=== PATIENT | male | born 1945 | race Caucasian/White ===

== ENCOUNTER 2024-11-01 02:09 | Emergency (ER) | payer MEDICARE, SELFPAY ==
--- NOTE | ~2024-11-01 | CT_ITS ---
CLINICAL HISTORY: Generalized malaise, coffee-ground emesis CTA abdomen and pelvis with contrast. Comparison: None. Findings: Mild emphysematous changes are seen in the lung bases. Couple simple left hepatic cysts are seen measuring up to 1.2 cm. Additional subcentimeter hepatic hypodensities are too small to characterize. Subcentimeter hypodensity in the left kidney is also too small to characterize. The gallbladder, pancreas, spleen, bilateral adrenal glands, and right kidney appear within normal limits. 3.3 cm coarse calcification is seen in the posterior urinary bladder. There is no adenopathy. No active gastrointestinal hemorrhage is identified. There is no evidence of bowel obstruction. The appendix appears normal. There is no pneumoperitoneum or ascites. 0.9 cm focal sclerosis is seen in the right inferior pubic ramus, likely representing a bone island. No aggressive lytic or blastic lesion is seen. Severe degenerative changes are seen at L5/S1. No acute osseous abnormality is identified. Impression: 1. No evidence of active gastrointestinal hemorrhage. 2. 3.3 cm coarse calcification in the posterior urinary bladder. 3. Other findings as described. This document has been electronically signed by: Yvonne Quinones on 11/01/2024 06:16:54
[2024-11-01 02:15] VITALS: BP 130/64; BP 147/65; PULSE 68; PULSE 77; RESP 15; TEMP 36.4; O2SAT 97; O2SAT 99; BMI 20.3
--- NOTE | 2024-11-01 02:39 | ECG_ITS ---
Test Reason : NAUSEA/VOMITING Blood Pressure : */* mmHG Vent. Rate : 64 BPM Atrial Rate : 64 BPM P-R Int : 146 ms QRS Dur : 82 ms QT Int : 426 ms P-R-T Axes : 54 71 71 degrees QTcB Int : 439 ms Normal sinus rhythm Normal ECG No previous ECGs available Referred By: Riya Ernst Electronically Signed By: RULA SOLORZANO MD
--- NOTE | 2024-11-01 03:22 | PC.NURSE ---
Patient presents from [place], patient changed into hospital attire. Noted to have remnant of brown emesis within his aleman. Patient did not arrive with any paperwork, Phone call was placed to [facility] and spoke with Amy CARROLL who stated she would fax the appropriate documents including med rec and section 21 to [place] [facility].
[2024-11-01 03:42] LABS: MANUAL DIFF FLAG NO
[2024-11-01 03:43] LABS: Basophils Percent Auto 0.3 % (0-2); Hematocrit 37.4 % (42.0-52.0); Imm Gran Abs Auto 0.07 X10*3/uL (0.00-0.03); Imm Gran Pct Auto 0.6 % (0.0-0.4); Lymphocytes Percent Auto 9.1 % (20-40); Mean Corpuscular HGB Conc 34.8 g/dl (31.0-36.0); Mean Platelet Volume 10.4 fL (9.4-12.4); Monocytes Absolute Auto 0.6 X10*3/uL (0.1-1.2); Monocytes Percent Auto 4.9 % (2-11); Neutrophils Absolute Auto 9.7 x10*3/uL (2.0-8.3); Neutrophils Percent Auto 85.1 % (45-73); Platelet Count 234 X10*3/uL (160-400); Red Cell Distribution Width 13.5 % (11.0-16.0); White Blood Count 11.3 X10*3/uL (4.8-10.8)
[2024-11-01 03:53] LABS: Lipase 50 U/L (8-78)
[2024-11-01 04:01] LABS: Alanine Aminotransferase 17 U/L (0-40); Albumin Level 4.2 g/dL (3.5-5.0); Alkaline Phosphatase 97 U/L (39-117); Anion Gap 12 (12-20); Aspartate Amino Transferase 25 U/L (5-37); Bilirubin Total 0.4 mg/dL (0.0-1.0); Blood Urea Nitrogen 21 mg/dL (9-16); Calcium 9.2 mg/dL (8.4-10.2); Carbon Dioxide 26 mmol/L (22-29); Chloride 107 mmol/L (96-108); Creatinine Clr Calc Pharmacy 75.3; Estimated Glomerular Filt Rate > 60; Glucose Random 114 mg/dL (60-115); Potassium 3.8 mmol/L (3.3-5.1); Sodium 141 mmol/L (135-145); Total Protein 7.6 g/dL (6.5-8.0)
[2024-11-01 04:28] LABS: Prothrombin Time 11.9 SEC (10.9-12.4)
--- NOTE | 2024-11-01 04:41 | ED_ITS ---
HPI - Nausea/Vomiting/Diarrhea General Chief complaint: Nausea/Vomiting/Diarrhea Stated complaint: NPOx 2days, ate today v post meal, +1 v brown liq Time Seen by Provider: 11/01/24 04:03 Source: patient and EMS Mode of arrival: EMS Limitations: no limitations and other History of Present Illness ED Provider: Dr. Riya Ernst HPI Narrative: Patient comes to the emergency room from [facility], complaining of coffee- ground emesis. EMS reported the patient was having abdominal pain and generalized weakness. Patient denies any pain. Patient states that he has not eaten anything the last couple of days, endorses generalized weakness. Patient has history of dementia and is unable to give it was significant history. Patient was sent from the facility without any documentation regarding his past medical history or medications, unclear if his on any blood thinners. Related Data Previous Rx's ?Medication ?Instructions ?Recorded cefuroxime axetil 250 mg tablet 250 mg PO BID #14 tabs 11/01/24 ondansetron HCl 4 mg tablet 4 mg PO Q6H PRN nausea and 11/01/24 vomiting #14 tabs Allergies Allergy/AdvReac Type Severity Reaction Status Date / Time No Known Allergies Allergy Verified 11/01/24 02:26 Review of Systems 2 Review of Systems: Constitutional : No Weight loss, No Fever, No Chills, No Night Sweats, complaining of fatigue and generalized weakness ENT/Mouth : No Hearing loss, No Ear Pain, No Nasal Congestion, No Sinus Pain, No Hoarseness, No sore throat, No Rhinorrhea, No Swallowing Difficulty Eyes: No Eye Pain, No Swelling, No Redness, No Foreign Body, No Discharge, No Vision Changes Cardiovascular : No Chest Pain, No SOB, No Dyspnea on Exertion, No Orthopnea, No Edema, No Palpitations Respiratory : No Cough, No Sputum, No Wheezing, No Smoke Exposure, No Dyspnea Gastrointestinal : Complaining of coffee-ground emesis, No Diarrhea, No Constipation, No abdominal Pain, No Hematochezia, No Melena Genitourinary : no irregular bleeding, No Dysuria, No Urinary Frequency, No Hematuria, No Urinary Incontinence, No Urgency, No Flank Pain, No Urinary Flow Changes, No Hesitancy Musculoskeletal : No joint pain, No Myalgias, No Joint Swelling Skin : No Skin Lesions, No rash Neuro : No Weakness, No Numbness, No Paresthesias, No Loss of Consciousness, No Dizziness, No Headache Psych : No Anxiety/Panic, No Depression, No SI/HI/AH/VH, No Social Issues, Heme/Lymph: No Bruising, No Bleeding,No Lymphadenopathy Endocrine : No Polyuria, No Polydipsia, No Temperature Intolerance PMFSH Social History Social History Smoked in Last 30 Days: No Use of substances other than those prescribed or required for medical reasons: No Advance Directives: No Do you have a plan to hurt others: No Plan Physical Exam 2 Vital Signs: Vital Signs: Last Vital Signs Temp 97.8 F 11/01/24 05:20 Pulse 73 11/01/24 05:20 Resp 17 11/01/24 05:20 BP 135/64 11/01/24 05:20 Pulse Ox 96 11/01/24 05:20 O2 Del Method Room Air 11/01/24 05:20 BMI result Body Mass Index 20.3 Course Course Course Narrative: Medical records have been requested from patient's shelter other than dementia, we do not have any past medical history or list of medications Medications Administered Generic Name Dose Route Start Last Admin Trade Name Freq PRN Reason Stop Dose Admin Sodium Chloride 1,000 mls @ 999 mls/hr 11/01/24 06:21 11/01/24 06:36 Ns IVCONT 11/01/24 07:21 999 mls/hr .Q1H1M ONE Administration Discontinued Medications Generic Name Dose Route Start Last Admin Trade Name Freq PRN Reason Stop Dose Admin Iohexol 85 ml 11/01/24 05:05 11/01/24 05:05 Iohexol 350 Mg/Ml 100 Ml Infus..Btl IV 11/01/24 05:06 85 ml ONCE ONE Administration Ondansetron HCl 4 mg 11/01/24 06:21 11/01/24 06:36 Ondansetron Hcl 4 Mg/2 Ml Vial IVPUSH 11/01/24 06:22 4 mg ONCE ONE Administration Medical Decision Making Medical Decision Making [facility] Narrative: Patient's white blood cell count 13.3, no significant abnormality in patient's chemistry, normal LFTs, normal lipase my normal magnesium, stool occult blood test is heme negative CT of the abdomen and pelvis do not show any acute abnormality. No evidence of acute GI hemorrhage Serology negative for COVID and influenza. Urinalysis positive for UTI. Patient received the 1st dose of ceftriaxone IV. Patient will be going home with a prescription for Zofran and PO cefuroxime. Patient has not vomited in the emergency room. Differential Diagnosis Differential Diagnoses: The differential diagnosis associated with the presentation includes (UA, upper GI bleed, lower GI bleed, viral syndrome) Admission/Observation Consideration of admission/observation: Escalation of care including admission/observation considered (Given patient's age and presentation, observation was considered) Lab Data MDM Lab Attestation statement: I reviewed the patient's lab results. 11/01/24 03:38 11/01/24 03:38 Labs: Lab Results 11/01/24 11/01/24 11/01/24 Range/Units 03:38 04:19 05:06 WBC 11.3 H (4.8-10.8) X10*3/uL RBC 4.20 L (4.60-5.80) X10*6/uL Hgb 13.0 L (14.0-18.0) g/dl Hct 37.4 L (42.0-52.0) % MCV 89.0 (80.0-98.0) fL MCH 31.0 (27.0-33.0) pg MCHC 34.8 (31.0-36.0) g/dl RDW 13.5 (11.0-16.0) % Plt Count 234 (160-400) X10*3/uL MPV 10.4 (9.4-12.4) fL Immature Gran % (Auto) 0.6 H (0.0-0.4) % Neut % (Auto) 85.1 H (45-73) % Lymph % (Auto) 9.1 L (20-40) % Perkins % (Auto) 4.9 (2-11) % Eos % (Auto) 0.0 (0-4) % Baso % (Auto) 0.3 (0-2) % Lymph # (Auto) 1.0 L (1.2-4.9) X10*3/uL Perkins # (Auto) 0.6 (0.1-1.2) X10*3/uL Eos # (Auto) 0.0 (0.0-0.4) X10*3/uL Baso # (Auto) 0.0 (0.0-0.2) X10*3/uL Abs Immat Gran (auto) 0.07 H (0.00-0.03) X10*3/uL Absolute Neuts (auto) 9.7 H (2.0-8.3) x10*3/uL Absolute Nucleated RBC 0.000 (0.0-0.012) X10*3/uL Nucleated RBC % (auto) 0.0 (0.0-0.2) /100WBC PT 11.9 (10.9-12.4) SEC INR 1.0 (0.9-1.1) Sodium 141 (135-145) mmol/L Potassium 3.8 (3.3-5.1) mmol/L Chloride 107 (96-108) mmol/L Carbon Dioxide 26 (22-29) mmol/L Anion Gap 12 (12-20) BUN 21 H (9-16) mg/dL Creatinine 0.79 (0.5-1.4) mg/dL Estim Creat Clear Calc 75.3 Estimated GFR > 60 Random Glucose 114 (60-115) mg/dL Calcium 9.2 (8.4-10.2) mg/dL Magnesium 2.0 (1.6-2.6) mg/dL Total Bilirubin 0.4 (0.0-1.0) mg/dL AST 25 (5-37) U/L ALT 17 (0-40) U/L Alkaline Phosphatase 97 (39-117) U/L Total Protein 7.6 (6.5-8.0) g/dL Albumin 4.2 (3.5-5.0) g/dL Lipase 50 (8-78) U/L Urine Color Urine Appearance Urine pH (5.0-9.0) Ur Specific Calion (1.005-1.025) Urine Protein (Neg-Trace) mg/dL Urine Glucose (UA) (Negative) mg/dL Urine Ketones (Negative) mg/dL Urine Blood (Negative) Urine Nitrite (Negative) Ur Leukocyte Esterase (Negative) Urine RBC (0-2) /HPF Urine WBC (0-5) /HPF Ur Squamous Epith Cells (0-2) /HPF Urine Bacteria (None Seen) Hyaline Casts (0-2) /LPF Stool Occult Blood NEGATIVE (NEGATIVE) COVID-19 ([place]) (Negative) COVID-19 Clin Com Influenza Type A ([place]) (Negative) Influenza Type B ([place]) (Negative) Influenza A & B Note 11/01/24 11/01/24 Range/Units 06:12 06:30 WBC (4.8-10.8) X10*3/uL RBC (4.60-5.80) X10*6/uL Hgb (14.0-18.0) g/dl Hct (42.0-52.0) % MCV (80.0-98.0) fL MCH (27.0-33.0) pg MCHC (31.0-36.0) g/dl RDW (11.0-16.0) % Plt Count (160-400) X10*3/uL MPV (9.4-12.4) fL Immature Gran % (Auto) (0.0-0.4) % Neut % (Auto) (45-73) % Lymph % (Auto) (20-40) % Perkins % (Auto) (2-11) % Eos % (Auto) (0-4) % Baso % (Auto) (0-2) % Lymph # (Auto) (1.2-4.9) X10*3/uL Perkins # (Auto) (0.1-1.2) X10*3/uL Eos # (Auto) (0.0-0.4) X10*3/uL Baso # (Auto) (0.0-0.2) X10*3/uL Abs Immat Gran (auto) (0.00-0.03) X10*3/uL Absolute Neuts (auto) (2.0-8.3) x10*3/uL Absolute Nucleated RBC (0.0-0.012) X10*3/uL Nucleated RBC % (auto) (0.0-0.2) /100WBC PT (10.9-12.4) SEC INR (0.9-1.1) Sodium (135-145) mmol/L Potassium (3.3-5.1) mmol/L Chloride (96-108) mmol/L Carbon Dioxide (22-29) mmol/L Anion Gap (12-20) BUN (9-16) mg/dL Creatinine (0.5-1.4) mg/dL Estim Creat Clear Calc Estimated GFR Random Glucose (60-115) mg/dL Calcium (8.4-10.2) mg/dL Magnesium (1.6-2.6) mg/dL Total Bilirubin (0.0-1.0) mg/dL AST (5-37) U/L ALT (0-40) U/L Alkaline Phosphatase (39-117) U/L Total Protein (6.5-8.0) g/dL Albumin (3.5-5.0) g/dL Lipase (8-78) U/L Urine Color Yellow Urine Appearance Turbid Urine pH 7.5 (5.0-9.0) Ur Specific Calion 1.025 (1.005-1.025) Urine Protein 30 (1+) H (Neg-Trace) mg/dL Urine Glucose (UA) Negative (Negative) mg/dL Urine Ketones 40 (Negative) mg/dL Urine Blood Small (1+) H (Negative) Urine Nitrite Negative (Negative) Ur Leukocyte Esterase Large (3+) H (Negative) Urine RBC 0-2 (0-2) /HPF Urine WBC >50 H (0-5) /HPF Ur Squamous Epith Cells 0-2 (0-2) /HPF Urine Bacteria 4+ (None Seen) Hyaline Casts 3-5 (0-2) /LPF Stool Occult Blood (NEGATIVE) COVID-19 ([place]DIS) Negative (Negative) COVID-19 Clin Com See Note Influenza Type A ([place]) Negative (Negative) Influenza Type B ([place]) Negative (Negative) Influenza A & B Note See Note Independent Interpretation I performed an independent interpretation of an: CT Scan Radiology Impression Discussion of test interpretation with radiology: I have reviewed the radiologist's reading. Radiologist Impression: Mild emphysematous changes are seen in the lung bases. Couple simple left hepatic cysts are seen measuring up to 1.2 cm. Additional subcentimeter hepatic hypodensities are too small to characterize. Subcentimeter hypodensity in the left kidney is also too small to characterize. The gallbladder, pancreas, spleen, bilateral adrenal glands, and right kidney appear within normal limits. 3.3 cm coarse calcification is seen in the posterior urinary bladder. There is no adenopathy. No active gastrointestinal hemorrhage is identified. There is no evidence of bowel obstruction. The appendix appears normal. There is no pneumoperitoneum or ascites. 0.9 cm focal sclerosis is seen in the right inferior pubic ramus, likely representing a bone island. No aggressive lytic or blastic lesion is seen. Severe degenerative changes are seen at L5/S1. No acute osseous abnormality is identified. Impression: 1. No evidence of active gastrointestinal hemorrhage. 2. 3.3 cm coarse calcification in the posterior urinary bladder. 3. Other findings as described. Critical Care Time Critical Care Time Critical Care Time: Yes Total Critical Care Time: 45 Attestation: I have personally provided critical care time. Time includes review of lab data, radiology results, discussion with consultants, and monitoring for potential decompensation. Intervention performed as documented. Discharge Plan Discharge Clinical Impression: Nausea & vomiting, Acute UTI Patient Disposition: Home, Self-Care Instructions: Urinary Tract Infection in Men (ED), Acute Nausea and Vomiting (ED), Acute Abdominal Pain (ED) Prescriptions: New cefuroxime axetil 250 mg tablet 250 mg PO BID Qty: 14 0RF ondansetron HCl 4 mg tablet 4 mg PO Q6H PRN (Reason: nausea and vomiting) Qty: 14 0RF Print Language: Zambian
[2024-11-01] MEDS: iohexoL 350 MG/ML 100 ML INFUS..BTL 85 ML IV (05:05)
[2024-11-01 05:13] LABS: OBS Int Ctl Valid YES; OBS1 NEGATIVE (NEGATIVE)
[2024-11-01 05:20] VITALS: BP 135/64; PULSE 73; RESP 17; TEMP 36.6; O2SAT 96
[2024-11-01 06:31] LABS: COVID-19 Test Negative (Negative); IDNOW Serial# 58CA691E; IDNOW Serial# 6674DD1D; Influenza A Negative (Negative); Influenza B2 Negative (Negative)
[2024-11-01] MEDS: ondansetron HCL 4 MG/2 ML VIAL IVPUSH (06:36)
[2024-11-01] MEDS: 0.9 % Sodium Chloride 1,000 ML 999 ML IVCONT (06:36)
[2024-11-01 06:45] LABS: Appearance Urine Turbid; Color Urine Yellow; Glucose Urine UA Negative (Negative); Leukocyte Esterase Urine Large (3+) (Negative); Nitrite Urine Negative (Negative); PH 7.5 (5.0-9.0); Specific Gravity - Urine 1.025 (1.005-1.025); UMIC TRIGGER UACC YES; Urine Blood Small (1+) (Negative); Urine Ketones 40 mg/dL (Negative); Urine Protein 30 (1+) mg/dL (Neg-Trace)
[2024-11-01 06:58] LABS: Bacteria Urine 4+ (None Seen); RBC Urine 0-2 /HPF (0-2); Squamous Epithelial Cell Urine 0-2 /HPF (0-2); UACC Culture Trigger YES; WBC Urine >50 /HPF (0-5)
[2024-11-01] MEDS: cefTRIAXone sodium 1 GM VIAL IVPUSH (07:16)
[2024-11-01 08:11] VITALS: BP 114/61; PULSE 67; RESP 14; TEMP 36.2; O2SAT 98
[2024-11-01 09:22] VITALS: BP 114/61; PULSE 67; RESP 14; TEMP 36.2; O2SAT 98
== END 2024-11-01 09:23 | disposition home or self-care (01) ==
PROVIDERS: Emergency Provider Emergency Medicine
DX: N39.0 Urinary tract infection, site not specified (principal); R11.2 Nausea with vomiting, unspecified
CPT/HCPCS: 36415; 74178; 80053; 81001; 82272; 83690; 83735; 85025; 85610; 87086; 87088; 87186; 87502; 87635; 93005; 96374; 96375; 99284; 99285; J0696; J2405; Q9967

== ENCOUNTER → 2024-11-01 02:39 | Outpatient (BNV) | payer MEDICARE, SELFPAY | PROVIDERS: Emergency Provider Emergency Medicine; Visit Provider Internal Medicine Cardiovascular Disease | DX: R11.2 Nausea with vomiting, unspecified (principal) | CPT/HCPCS: 93010 ==

== ENCOUNTER → 2024-11-01 04:11 | Outpatient (BNV) | payer MEDICARE, SELFPAY | PROVIDERS: Emergency Provider Emergency Medicine; Visit Provider Radiology Vascular & Interventional Radiology | DX: R53.81 Other malaise (principal); K92.0 Hematemesis | CPT/HCPCS: 74178 ==